=== PATIENT | female | born 1990 | race Caucasian/White ===

== ENCOUNTER 2018-02-28 14:49 | Emergency (ER) | payer BC, OTHER ==
[~2018-02-28] VITALS: Ht 162.6 cm; Wt 75.7 kg
--- NOTE | 2018-02-28 15:30 | ED Headache ---
General Chief Complaint: Head/Cervical Problems Stated Complaint: MIGRAINE Nursing Triage Note: C/O persistant headache with associated left sided neck pain. Pt was treated and released from [facility] on after a apparent seizure and headache. Pt awake,alert, and active. GCS-15. Nursing Sepsis Screen: No Definite Risk Source: patient, family Exam Limitations: no limitations History of Present Illness Date Seen by Provider: Feb 28, 2018 Time Seen by Provider: 15:30 Initial Comments 27 yo female patient presents to the ED with c/o persistent headache since . Patient reports possibly having a seizure last while at work. Patient reports of "not feeling well" all day . When she went to break she felt like she couldn't catch her breath and felt a sharp pain in her chest. Her left arm felt tingly and numb. Patient reports her vision going dark. The next thing she remembers is waking up on the floor with her co- workers around her. States she was trying to get up, but they wouldn't let her. Coworkers told the patient's parents that she was "twitching like she was having a seizure." Denies being incontinent of stool or urine. Patient was seen at [facility] ED. CT head/neck and knee xray were negative. She had a similar episode 2 years ago and reports being told by her PCP that if another episode didn't happen within 6 months, it probably wouldn't happen. She now c/ o worsened headache, neck pain (L>R), right cheek pain, and left rib pain. Patient did bring ED records with her. Timing/Duration: waxing and waning Severity/Quality: throbbing Location: frontal (rt), occipital, parietal (rt) Prior Headaches/Recent Trauma: head trauma > 24 hrs ago (syncopal episode with fall on February.) Modifying Factors: worse with exposure to light (sound and light sensitivities. ), worse with movement (movement of the neck); improves with other (deep breaths increase the rib pain.) Allergies and Home Medications Allergies Coded Allergies: Penicillins (Verified Allergy, Unknown, 02/28/18) latex (Verified Allergy, Unknown, 02/28/18) Home Medications Naproxen 500 Mg Tablet, 500 MG PO BID PRN for PAIN-MILD TO MODERATE Prescribed by: BETTY MONTAÑO on 02/28/181826 Ondansetron 8 Mg Tab.rapdis, 8 MG PO Q6H PRN for NAUSEA/VOMITING-1ST LINE Prescribed by: BETTY MONTAÑO on 02/28/181826 Orphenadrine Citrate 100 Mg Tablet.er, 50-100 MG PO BID PRN for SPASMS Prescribed by: BETTY MONTAÑO on 02/28/181826 Prednisone 20 Mg Tab, 20 MG PO BID Prescribed by: BETTY MONTAÑO on 02/28/181826 Tramadol HCl 50 Mg Tablet, 50 MG PO Q4H PRN for pain Prescribed by: BETTY MONTAÑO on 02/28/181826 Patient Home Medication List Home Medication List Reviewed: Yes Review of Systems Constitutional: No chills, No dizziness, No fever; malaise, other (fatigue) Eyes: Denies Blurred Vision, Denies Drainage, Denies Decreased Acuity; Photophobia; Denies Vision Changes Ears, Nose, Mouth, Throat: see HPI; denies ear pain, denies ear discharge, denies nose pain, denies nose discharge, denies epistaxis, denies mouth pain, denies mouth swelling, denies loose teeth, denies throat pain Respiratory: see HPI; No cough, No dyspnea on exertion, No hemoptysis, No phlegm; short of breath; No stridor, No wheezing; other (left rib pain.) Cardiovascular: No chest pain; palpitations, syncope Gastrointestinal: see HPI; No abdominal pain, No constipation, No diarrhea, No hematemesis; loss of appetite; No melena; nausea, vomiting Genitourinary: no symptoms reported Musculoskeletal: see HPI; No back pain, No joint pain; neck pain Skin: No change in color, No lumps Psychiatric/Neurological: Headache; Denies Numbness, Denies Paresthesia, Denies Seizure, Denies Tingling, Denies Weakness All Other Systems Reviewed Negative Unless Noted: Yes (Negative excepted noted.) Past Vidvcev-Wicgdd-Jnngoe Hx Patient Social History Alcohol Use: Denies Use Recreational Drug Use: No Smoking Status: Current Everyday Smoker Recent Foreign Travel: No Contact w/Someone Who Travel: No Recent Infectious Disease Expo: No Past Medical History Surgeries: Yes Orthopedic Respiratory: No Neurological: No Sexually Transmitted Disease: No Genitourinary: No Gastrointestinal: No Musculoskeletal: No Endocrine: No HEENT: No Cancer: No Psychosocial: No Integumentary: No Blood Disorders: No Family Medical History Reviewed Nursing Family Hx No Pertinent Family Hx (FHX unknown (patient is adopted).) Physical Exam Vital Signs Vital Signs - First Documented 02/28/18 15:15 Temp 97.6 Pulse 90 Resp 16 B/P (MAP) 144/109 (121) Pulse Ox 98 O2 Delivery Room Air Capillary Refill : Less Than 3 Seconds General Appearance: WD/WN, no apparent distress HEENT: PERRL/EOMI, normal ENT inspection, TMs normal, pharynx normal, other ( posterior scalp TTP with swelling. TTP at the base of the skull bilaterally.) Neck: full range of motion, supple, tender lateral (posterolateral muscle spasm with ttp. ), tender midline (mild midline tenderness without deformity or stepoff.) Cardiovascular: normal peripheral pulses, regular rate, rhythm, no edema, no murmur Respiratory: lungs clear, normal breath sounds, no respiratory distress, no accessory muscle use, other (left posterior and lateral ribs TTP without deformity, bruising, or swelling.) Gastrointestinal: normal bowel sounds, non tender, soft, no organomegaly Back: normal inspection, no vertebral tenderness Extremities: normal range of motion, non-tender, normal inspection, no pedal edema, normal capillary refill, pelvis stable Psychiatric: alert, oriented x 3 Crainal Nerves: normal hearing, normal speech, PERRL Coordination/Gait: normal finger to nose, normal gait, negative Romberg's sign Motor/Sensory: no motor deficit, no sensory deficit, no pronator drift Skin: normal color, warm/dry Progress/Results/Core Measures Lab Results Laboratory Tests Test 02/28/18 16:12 02/28/18 18:24 Range/Units White Blood Count 9.4 4.3-11.0 10^3/uL Red Blood Count 4.73 4.35-5.85 10^6/uL Hemoglobin 14.8 11.5-16.0 G/DL Hematocrit 42 35-52 % Mean Corpuscular Volume 89 80-99 FL Mean Corpuscular Hemoglobin 31 25-34 PG Mean Corpuscular Hemoglobin Concent 35 32-36 G/DL Red Cell Distribution Width 12.0 10.0-14.5 % Platelet Count 227 130-400 10^3/uL Mean Platelet Volume 10.4 7.4-10.4 FL Neutrophils (%) (Auto) 55 42-75 % Lymphocytes (%) (Auto) 34 12-44 % Monocytes (%) (Auto) 9 0-12 % Eosinophils (%) (Auto) 1 0-10 % Basophils (%) (Auto) 0 0-10 % Neutrophils # (Auto) 5.2 1.8-7.8 X 10^3 Lymphocytes # (Auto) 3.2 1.0-4.0 X 10^3 Monocytes # (Auto) 0.9 0.0-1.0 X 10^3 Eosinophils # (Auto) 0.1 0.0-0.3 10^3/uL Basophils # (Auto) 0.0 0.0-0.1 10^3/uL Erythrocyte Sedimentation Rate 1 0-20 MM/HR Sodium Level 138 135-145 MMOL/L Potassium Level 4.1 3.6-5.0 MMOL/L Chloride Level 105 98-107 MMOL/L Carbon Dioxide Level 26 21-32 MMOL/L Anion Gap 7 5-14 MMOL/L Blood Urea Nitrogen 13 7-18 MG/DL Creatinine 0.74 0.60-1.30 MG/DL Estimat Glomerular Filtration Rate > 60 BUN/Creatinine Ratio 18 Glucose Level 85 70-105 MG/DL Calcium Level 9.8 8.5-10.1 MG/DL Total Bilirubin 0.5 0.1-1.0 MG/DL Aspartate Amino Transf (AST/SGOT) 22 5-34 U/L Alanine Aminotransferase (ALT/SGPT) 56 H 0-55 U/L Alkaline Phosphatase 70 40-136 U/L C-Reactive Protein High Sensitivity 0.06 0.00-0.50 MG/DL Total Protein 7.3 6.4-8.2 GM/DL Albumin 4.5 3.2-4.5 GM/DL TSH [place] Testing 1.34 0.35-4.94 UIU/ML Serum Test, Qualitative NEGATIVE NEGATIVE Urine Color YELLOW Urine Clarity CLEAR Urine pH 5 5-9 Urine Specific [place] 1.010 L 1.016-1.022 Urine Protein NEGATIVE NEGATIVE Urine Glucose (UA) NEGATIVE NEGATIVE Urine [place] NEGATIVE NEGATIVE Urine Nitrite NEGATIVE NEGATIVE Urine Bilirubin NEGATIVE NEGATIVE Urine Urobilinogen NORMAL NORMAL MG/DL Urine Leukocyte Esterase NEGATIVE NEGATIVE Urine RBC (Auto) NEGATIVE NEGATIVE Urine RBC NONE /HPF Urine WBC NONE /HPF Urine Squamous Epithelial Cells 5-10 /HPF Urine Crystals NONE /LPF Urine Bacteria NEGATIVE /HPF Urine Casts NONE /LPF Urine Mucus NEGATIVE /LPF Urine Culture Indicated NO My Orders Orders - BETTY MONTAÑO Ct Chest W (02/28/18 15:47) Ct Head/Face/Cervical Wo (02/28/18 15:47) Saline Lock/Iv-Start (02/28/18 15:47) Ekg Tracing (02/28/18 15:47) Cbc With Automated Diff (02/28/18 15:47) Comprehensive Metabolic Panel (02/28/18 15:47) Hs C Reactive Protein (02/28/18 15:47) Hcg,Qualitative Serum (02/28/18 15:47) Thyroid Analyzer (02/28/18 15:47) Ua Culture If Indicated (02/28/18 15:47) Erythrocyte Sedimentation Rate (02/28/18 15:47) Ondansetron Injection (Zofran Injectio (02/28/18 16:00) Fentanyl Injection (Sublimaze Injection (02/28/18 15:47) Orphenadrine Injection (Norflex Injectio (02/28/18 15:47) Ns Iv 1000 Ml (Sodium Chloride 0.9%) (02/28/18 15:47) Iohexol Injection (Omnipaque 350 Mg/Ml 1 (02/28/18 16:00) Ns (Ivpb) (Sodium Chloride 0.9% Ivpb Bag (02/28/18 16:00) Ondansetron Injection (Zofran Injectio (02/28/18 17:45) Ketorolac Injection (Toradol Injection) (02/28/18 17:31) Ns Iv 1000 Ml (Sodium Chloride 0.9%) (02/28/18 17:31) Acetaminophen Tablet (Tylenol Tablet) (02/28/18 18:55) Medications Given in ED Current Medications Medications Dose Ordered Sig/Trent Route Start Time Stop Time Status Last Admin Dose Admin Iohexol 75 ml ONCE ONCE IV 02/28/18 16:00 02/28/18 16:03 DC 02/28/18 17:14 75 ML Ondansetron HCl 4 mg ONCE ONCE IVP 02/28/18 16:00 02/28/18 16:01 DC 02/28/18 16:05 4 MG Ondansetron HCl 4 mg ONCE ONCE IVP 02/28/18 17:45 02/28/18 17:46 DC 02/28/18 17:44 4 MG Sodium Chloride 100 ml ONCE ONCE IV 02/28/18 16:00 02/28/18 16:03 DC 02/28/18 17:14 100 ML Sodium Chloride 1,000 ml @ 0 mls/hr Q0M ONCE IV 02/28/18 15:47 02/28/18 15:53 DC 02/28/18 16:06 0 MLS/HR Sodium Chloride 1,000 ml @ 0 mls/hr Q0M ONCE IV 02/28/18 17:31 02/28/18 17:33 DC 02/28/18 17:44 0 MLS/HR Vital Signs/I&O 02/28/18 02/28/18 15:15 19:18 Temp 97.6 97.6 Pulse 90 90 Resp 16 16 B/P (MAP) 144/109 (121) 138/98 (121) Pulse Ox 98 98 O2 Delivery Room Air Blood Pressure Mean: 121 Initial ECG Impression Date: Feb 28, 2018 Initial ECG Impression Time: 16:18 Initial ECG Rate: 65 Initial ECG Rhythm: Normal Sinus Initial ECG Intervals: Normal Initial ECG Impression: Normal Initial ECG Comparisson: No Previous ECG Available Comment ECG reviewed and discussed with Dr. Guajardo. Diagonstic Imaging: CT Plain Films/CT/US/NM/MRI: facial bones, c-spine, head Comments CT HEAD/FACE/CERVICAL WO PROCEDURE: CT head, face, and cervical spine without contrast. TECHNIQUE: Multiple contiguous axial images were obtained through the head, neck, and facial bones without the use of intravenous contrast. Sagittal and coronal reformations through the cervical spine and facial bones were also performed. INDICATION: Head and neck pain. FINDINGS: CT head: The ventricles are normal in size, shape, and position. There are no masses or hemorrhages. There are no extra-axial fluid collections. IMPRESSION: Negative CT head. CT cervical spine: Vertebral body height and alignment appear normal. There is slight reversal of the lordotic curvature that may be due to muscle spasm. Disc spaces are well maintained. There is no fracture or misalignment. IMPRESSION: Slight reversal of the lordotic curvature of the cervical spine, possibly due to muscle spasm. Cervical spine is otherwise unremarkable. CT facial bones: Mandible is intact. Temporomandibular joints appear normal. Zygomatic arches are intact. Nasal bones are intact. Orbital moise and rims are intact. There is a small amount of fluid in the left maxillary sinus. Paranasal sinuses are otherwise clear. Mastoid air cells are clear. IMPRESSION: Negative CT facial bones. Dictated by: Dictated on workstation # [id number] Reviewed: Reviewed by Me (radiology report reviewed by me) Diagonstic Imaging: CT Plain Films/CT/US/NM/MRI: chest Comments CT CHEST W PROCEDURE: CT chest with contrast only. TECHNIQUE: Multiple contiguous axial images were obtained through the chest after administration of intravenous contrast. INDICATION: Chest pain FINDINGS: The lungs are clear. There are no effusions or pneumothoraces. There is no hilar or mediastinal lymphadenopathy. The aorta appears normal. There are no central pulmonary emboli. IMPRESSION: Negative CT chest. Dictated by: Dictated on workstation # [id number] Reviewed: Reviewed by Me (radiology report reviewed by me) Departure Communication (Admissions) Patient seen and evaluated. [facility] ED records reviewed. Patient was given 1 L normal saline, 60 mg of Norflex IV, 50 g of fentanyl IV, and 4 mg of Zofran IV 1 dose. Initial labs obtained as well as a CT head/face/neck and CT chest. All laboratory and diagnostic findings were discussed with the patient. Patient continued to complain of headache and neck pain. Patient was given 15 mg of Toradol IV, 4 mg of Zofran prophylactically, as well as 1 g of Tylenol by mouth. Patient reports improvement in symptoms with medications. We'll plan for discharge to home with follow-up as an outpatient with Dr. Celaya. She will return to the emergency department immediately for worsened symptoms. All return precautions were discussed with the patient as described in the discharge instructions of this report. Patient ambulated from the emergency department without difficulty. Impression Primary Impression: Minor head injury Qualified Codes: S09.90XA - Unspecified injury of head, initial encounter Additional Impressions: Sprain of cervical neck Qualified Codes: S13.9XXA - Sprain of joints and ligaments of unspecified parts of neck, initial encounter Episode of syncope Qualified Codes: R55 - Syncope and collapse Contusion of ribs Qualified Codes: S20.212A - Contusion of left front wall of thorax, initial encounter Disposition: HOME, SELF-CARE Condition: Improved Departure-Patient Inst. Decision time for Depature: 18:30 Referrals: LIV CELAYA MD (PCP/Family) Primary Care Physician Patient Instructions: Cervical Muscle Strain (DC), Migraine Headache (DC), Minor Head Injury (DC), Syncope (Fainting) (DC) Add. Discharge Instructions: All discharge instructions reviewed with patient and/or family. Voiced understanding. Medications as instructed. Tylenol extra strength over-the- counter as directed for pain. Avoid heavy lifting, strenuous activities, or activities which may result and head injury for 7 days after the headache resolves. Use a heating pad or pack as needed for pain and muscle spasm. Follow-up with your family practitioner for recheck as an outpatient. She may order an outpatient MRI to further evaluate the neck and headache if symptoms persist. Return to the emergency department for worsened pain, headache, dizziness, changes in vision, changes in behavior, slurred speech, chest pain, shortness of air, fever, vomiting, or any other concerns. Scripts Ondansetron (Ondansetron Odt) 8 Mg Tab.rapdis 8 MG PO Q6H PRN for NAUSEA/VOMITING-1ST LINE, #10 TAB 0 Refills Prov: BETTY MONTAÑO 02/28/18 Tramadol HCl (Tramadol HCl) 50 Mg Tablet 50 MG PO Q4H PRN for pain, #14 TAB 0 Refills Prov: BETTY MONTAÑO 02/28/18 Naproxen (Naprosyn) 500 Mg Tablet 500 MG PO BID PRN for PAIN-MILD TO MODERATE, #20 TAB 0 Refills Prov: BETTY MONTAÑO 02/28/18 Prednisone (Prednisone) 20 Mg Tab 20 MG PO BID, #10 TAB 0 Refills Prov: BETTY MONTAÑO 02/28/18 Orphenadrine Citrate (Orphenadrine Citrate) 100 Mg Tablet.er 50-100 MG PO BID PRN for SPASMS, #14 TAB 0 Refills Prov: BETTY MONTAÑO 02/28/18 Work/School Note: Work Release Form Date Seen in the Emergency Department: Feb 28, 2018 Return to Work: Mar 04, 2018 Other Restrictions Listed Below: no heavy lifting, strenuous activities or activities that may result in BETTY MONTAÑO Feb 28, 2018 15:30
[2018-02-28] MEDS ORDERED: NS IV 1000 ML 1,000 ML IV ONE ×2 (15:47→17:31)
[2018-02-28] MEDS ORDERED: ORPHENADRINE 60 MG/2 ML (NORFLEX) AMP IV STA (15:47)
[2018-02-28] MEDS ORDERED: fentaNYL INJECTION 100 MCG/2 ML AMP IVP STA (15:47)
[2018-02-28] MEDS ORDERED: IOHEXOL 350 MG/ML 100 ML (OMNIPAQUE 350) VIAL IV ONE (16:00)
[2018-02-28] MEDS ORDERED: ONDANSETRON 4 MG/2 ML (SDV) Z0FRAN IVP ONE ×2 (16:00→17:45)
[2018-02-28] MEDS ORDERED: NS 100 ML (IVPB) BAG IV ONE (16:00)
[2018-02-28 16:22] LABS: BASOPHILS % (AUTO) 0 % (0-10); EOSINOPHILS # (AUTO) 0.1 10^3/uL (0.0-0.3); EOSINOPHILS % (AUTO) 1 % (0-10); HEMATOCRIT 42 % (35-52); HEMOGLOBIN 14.8 G/DL (11.5-16.0); LYMPHOCYTES # (AUTO) 3.2 X 10^3 (1.0-4.0); LYMPHOCYTES % (AUTO) 34 % (12-44); MEAN CORPUSCULAR HEMOGLOBIN 31 PG (25-34); MEAN CORPUSCULAR HGB CONC 35 G/DL (32-36); MEAN CORPUSCULAR VOLUME 89 FL (80-99); MEAN PLATELET VOLUME 10.4 FL (7.4-10.4); MONOCYTES # (AUTO) 0.9 X 10^3 (0.0-1.0); MONOCYTES % (AUTO) 9 % (0-12); NEUTROPHILS # (AUTO) 5.2 X 10^3 (1.8-7.8); NEUTROPHILS % (AUTO) 55 % (42-75); PLATELET COUNT 227 10^3/uL (130-400); RED BLOOD COUNT 4.73 10^6/uL (4.35-5.85); WHITE BLOOD COUNT 9.4 10^3/uL (4.3-11.0)
[2018-02-28 16:41] LABS: ERYTHROCYTE SEDIMENTATION RATE 1 MM/HR (0-20)
[2018-02-28 16:43] LABS: ALANINE AMINOTRANSFERASE 56 U/L (0-55); ALBUMIN 4.5 GM/DL (3.2-4.5); ALKALINE PHOSPHATASE 70 U/L (40-136); BILIRUBIN,TOTAL 0.5 MG/DL (0.1-1.0); BUN/CREATININE RATIO 18; CALCIUM 9.8 MG/DL (8.5-10.1); CARBON DIOXIDE 26 MMOL/L (21-32); CHLORIDE 105 MMOL/L (98-107); CREATININE SERUM 0.74 MG/DL (0.60-1.30); GFR ESTIMATED > 60; GLUCOSE 85 MG/DL (70-105); POTASSIUM 4.1 MMOL/L (3.6-5.0); SODIUM 138 MMOL/L (135-145); TOTAL PROTEIN 7.3 GM/DL (6.4-8.2)
[2018-02-28 17:03] LABS: TSH (THYROID ANALYZER) 1.34 UIU/ML (0.35-4.94)
[2018-02-28] MEDS ORDERED: KETOROLAC 30 MG/ML VIAL IVP STA (17:31)
--- NOTE | 2018-02-28 17:42 | Diagnostic Imaging Report ---
PROCEDURE: CT chest with contrast only. TECHNIQUE: Multiple contiguous axial images were obtained through the chest after administration of intravenous contrast. INDICATION: Chest pain FINDINGS: The lungs are clear. There are no effusions or pneumothoraces. There is no hilar or mediastinal lymphadenopathy. The aorta appears normal. There are no central pulmonary emboli. IMPRESSION: Negative CT chest. Dictated by: Dictated on workstation # [id number]
--- NOTE | 2018-02-28 17:47 | Diagnostic Imaging Report ---
PROCEDURE: CT head, face, and cervical spine without contrast. TECHNIQUE: Multiple contiguous axial images were obtained through the head, neck, and facial bones without the use of intravenous contrast. Sagittal and coronal reformations through the cervical spine and facial bones were also performed. INDICATION: Head and neck pain. FINDINGS: CT head: The ventricles are normal in size, shape, and position. There are no masses or hemorrhages. There are no extra-axial fluid collections. IMPRESSION: Negative CT head. CT cervical spine: Vertebral body height and alignment appear normal. There is slight reversal of the lordotic curvature that may be due to muscle spasm. Disc spaces are well maintained. There is no fracture or misalignment. IMPRESSION: Slight reversal of the lordotic curvature of the cervical spine, possibly due to muscle spasm. Cervical spine is otherwise unremarkable. CT facial bones: Mandible is intact. Temporomandibular joints appear normal. Zygomatic arches are intact. Nasal bones are intact. Orbital moise and rims are intact. There is a small amount of fluid in the left maxillary sinus. Paranasal sinuses are otherwise clear. Mastoid air cells are clear. IMPRESSION: Negative CT facial bones. Dictated by: Dictated on workstation # [id number]
[2018-02-28] MEDS ORDERED: ONDA8TAB13 PO (18:27)
[2018-02-28] MEDS ORDERED: TRAM50TA2 PO (18:27)
[2018-02-28] MEDS ORDERED: PRD20T PO (18:27)
[2018-02-28] MEDS ORDERED: NAPR-1071 PO (18:27)
[2018-02-28] MEDS ORDERED: ORPH100T PO (18:27)
[2018-02-28 18:29] LABS: BILIRUBIN,URINE NEGATIVE (NEGATIVE); CLARITY,URINE CLEAR; COLOR,URINE YELLOW; GLUCOSE, URINE (UA) NEGATIVE (NEGATIVE); KETONES,URINE NEGATIVE (NEGATIVE); LEUKOCYTE ESTERASE ,URINE NEGATIVE (NEGATIVE); NITRITE,URINE NEGATIVE (NEGATIVE); PH,URINE 5 (5-9); PROTEIN,URINE NEGATIVE (NEGATIVE); UROBILINOGEN,URINE NORMAL (NORMAL)
[2018-02-28 18:40] LABS: BACTERIA,URINE NEGATIVE /HPF
[2018-02-28] MEDS ORDERED: ACETAMINOPHEN 500 MG TAB (TYLENOL) PO STA (18:55)
[2018-02-28 19:18] VITALS: BP 138/98
== END 2018-02-28 19:18 | disposition home or self-care (01) ==
LOC: ER 14:54
DX: S09.90XA Unspecified injury of head, initial encounter (principal); S13.9XXA Sprain of joints and ligaments of unspecified parts of neck, initial encounter; R55 Syncope and collapse; F17.200 Nicotine dependence, unspecified, uncomplicated; Z98.890 Other specified postprocedural states; Z88.0 Allergy status to penicillin; Z91.040 Latex allergy status; W18.30XA Fall on same level, unspecified, initial encounter; Y99.0 Civilian activity done for income or pay; Y92.89 Other specified places as the place of occurrence of the external cause
CPT/HCPCS: 36415; 70450; 70486; 71260; 72125; 80053; 81000; 84443; 84703; 85025; 85652; 86141; 93005; 96361; 96374; 96375; 96376

== ENCOUNTER → 2018-03-03 | Outpatient (CLI) | payer BC ==
[~2018-03-03] MED LIST: AMIT25TA9 PO; CYCL5TAB PO; DOXY100T2 PO; MULT-35 PO; NAPR-1071 PO; NAPR-915 PO; ONDA8TAB13 PO; ONDA8TAB9 SL; ORPH100T PO; PRD20T PO; PROM25TA14 PO; TRAM50TA2 PO
[2018-03-03 15:10] LABS: HEMOGLOBIN 14.3 G/DL (11.5-16.0); MEAN PLATELET VOLUME 10.4 FL (7.4-10.4); RED BLOOD COUNT 4.6 10^6/uL (4.35-5.85); RED CELL DISTRIBUTION WIDTH 11.9 % (10.0-14.5); WHITE BLOOD COUNT 10.9 10^3/uL (4.3-11.0)
--- NOTE | 2018-03-03 15:15 | Diagnostic Imaging Report ---
INDICATION: Fall, now with shoulder pain. EXAMINATION: Three views of the left shoulder. FINDINGS: No fracture, dislocation or acute articular incongruity. The alignment is normal. The scapula is intact. The AC joint is unremarkable. The visualized adjacent ribs and pleura are unremarkable. The clavicle is unremarkable. IMPRESSION: Negative. Dictated by: Dictated on workstation # [id number]
[2018-03-03 15:28] LABS: ALANINE AMINOTRANSFERASE 72 U/L (0-55); ALBUMIN 4.5 GM/DL (3.2-4.5); ALKALINE PHOSPHATASE 61 U/L (40-136); BILIRUBIN,TOTAL 0.4 MG/DL (0.1-1.0); BUN/CREATININE RATIO 22; CALCIUM 9.3 MG/DL (8.5-10.1); CARBON DIOXIDE 24 MMOL/L (21-32); CHLORIDE 106 MMOL/L (98-107); CREATININE SERUM 0.78 MG/DL (0.60-1.30); GFR ESTIMATED > 60; GLUCOSE 94 MG/DL (70-105); POTASSIUM 3.9 MMOL/L (3.6-5.0); SODIUM 138 MMOL/L (135-145); TOTAL PROTEIN 7.2 GM/DL (6.4-8.2)
== END ==
LOC: RAD 14:33
PROVIDERS: ATTEND Physician Assistant
DX: M25.512 Pain in left shoulder (principal); R51 Headache
CPT/HCPCS: 36415; 73030; 80053; 85027; 86611; 86666; 86668; 86757

== ENCOUNTER 2018-03-15 15:47 | Observation (INO) | payer BC ==
[~2018-03-15] VITALS: Ht 162.6 cm; Wt 78.9 kg
[~2018-03-15 15:47] MED LIST changes: -AMIT25TA9 PO; -CYCL5TAB PO; -DOXY100T2 PO; -MULT-35 PO; -NAPR-915 PO; -ONDA8TAB9 SL; -PROM25TA14 PO
[2018-03-15] MEDS ORDERED: ORPHENADRINE 60 MG/2 ML (NORFLEX) AMP IV STA (16:06)
[2018-03-15] MEDS ORDERED: KETOROLAC 30 MG/ML VIAL IVP STA (16:06)
[2018-03-15] MEDS ORDERED: ONDANSETRON 4 MG/2 ML (SDV) Z0FRAN IVP ONE ×2 (16:15→20:30)
[2018-03-15 16:27] LABS: BASOPHILS % (AUTO) 0 % (0-10); EOSINOPHILS # (AUTO) 0.1 10^3/uL (0.0-0.3); EOSINOPHILS % (AUTO) 1 % (0-10); HEMATOCRIT 46 % (35-52); HEMOGLOBIN 15.7 G/DL (11.5-16.0); LYMPHOCYTES # (AUTO) 2.6 X 10^3 (1.0-4.0); LYMPHOCYTES % (AUTO) 25 % (12-44); MEAN CORPUSCULAR HEMOGLOBIN 31 PG (25-34); MEAN CORPUSCULAR HGB CONC 35 G/DL (32-36); MEAN CORPUSCULAR VOLUME 89 FL (80-99); MEAN PLATELET VOLUME 10.8 FL (7.4-10.4); MONOCYTES # (AUTO) 0.5 X 10^3 (0.0-1.0); MONOCYTES % (AUTO) 5 % (0-12); NEUTROPHILS # (AUTO) 7.2 X 10^3 (1.8-7.8); NEUTROPHILS % (AUTO) 69 % (42-75); PLATELET COUNT 250 10^3/uL (130-400); RED BLOOD COUNT 5.12 10^6/uL (4.35-5.85); RED CELL DISTRIBUTION WIDTH 11.9 % (10.0-14.5); WHITE BLOOD COUNT 10.5 10^3/uL (4.3-11.0)
[2018-03-15] MEDS: NS IV 1000 ML 1,000 ML IV ONE ×2 (16:36→16:38)
[2018-03-15 16:56] LABS: ALANINE AMINOTRANSFERASE 83 U/L (0-55); ALBUMIN 4.7 GM/DL (3.2-4.5); ALKALINE PHOSPHATASE 76 U/L (40-136); BILIRUBIN,TOTAL 1.2 MG/DL (0.1-1.0); BUN/CREATININE RATIO 14; CALCIUM 10.2 MG/DL (8.5-10.1); CARBON DIOXIDE 23 MMOL/L (21-32); CHLORIDE 106 MMOL/L (98-107); CREATININE SERUM 0.76 MG/DL (0.60-1.30); GFR ESTIMATED > 60; GLUCOSE 89 MG/DL (70-105); POTASSIUM 4.1 MMOL/L (3.6-5.0); SODIUM 140 MMOL/L (135-145); TOTAL PROTEIN 7.7 GM/DL (6.4-8.2)
[2018-03-15 17:01] LABS: ERYTHROCYTE SEDIMENTATION RATE 1 MM/HR (0-20)
[2018-03-15] MEDS ORDERED: HYDROmorphone 2 MG/ML VIAL (DILAUDID) IVP STA ×2 (17:29→19:45)
--- NOTE | 2018-03-15 18:47 | Diagnostic Imaging Report ---
PROCEDURE: MR imaging cervical spine without contrast. TECHNIQUE: Multiplanar, multisequence MR imaging of the cervical spine was performed without contrast. DATE: March 15, 2018. COMPARISON: CT head, maxillofacial area and cervical spine February 28, 2018. INDICATION: 27-year-old female, history of fall a few weeks ago with severe neck and left shoulder pain. FINDINGS: There is reversal of the normal cervical lordosis. There is no evidence of diffuse marrow infiltrating or replacing process. There is no identified concerning focal bone lesion. There is no marrow edema. There is no evidence of acute fracture. There is no prevertebral soft tissue swelling. The visualized portions of the spinal cord are unremarkable in appearance. There are no findings to suggest ligamentous injury. Disc heights are well preserved. C2-C3: There is no disc bulge. The uncovertebral and facet joints are unremarkable. There is no foraminal narrowing. There is no spinal canal stenosis. C3-C4: There is no disc bulge. The uncovertebral and facet joints are unremarkable. There is no foraminal narrowing. There is no spinal canal stenosis. C4-C5: There is a small left paracentral posterior disc osteophyte complex. The uncovertebral and facet joints are unremarkable. There is no foraminal narrowing. There is no spinal canal stenosis. C5-C6: There is a right paracentral posterior disc osteophyte complex. The uncovertebral and facet joints are unremarkable. There is no foraminal narrowing. There is mild spinal canal stenosis. C6-C7: There is no disc bulge. The uncovertebral and facet joints are unremarkable. There is no foraminal narrowing. There is no spinal canal stenosis. C7-T1: There is no disc bulge. The uncovertebral and facet joints are unremarkable. There is no foraminal narrowing. There is no spinal canal stenosis. IMPRESSION: 1. C4-C5 small left paracentral posterior disc osteophyte complex without foraminal or spinal stenosis. 2. C5-C6 right paracentral posterior disc osteophyte complex with mild spinal stenosis. 3. No abnormal cord signal. 4. No acute fracture. 5. No evidence of ligamentous injury. 6. Reversal of normal cervical lordosis. Dictated by: Dictated on workstation # [id number]
--- NOTE | 2018-03-15 19:14 | Diagnostic Imaging Report ---
EXAMINATION: Magnetic resonance imaging of the left shoulder without contrast. DATE: March 15, 2018. COMPARISON: Left shoulder radiographs, March 03, 2018. HISTORY: 27-year-old female, history of recent fall. Persistent left shoulder pain. TECHNIQUE: Magnetic Resonance Imaging sequences were performed of the shoulder without contrast. FINDINGS: ROTATOR CUFF, LIGAMENTS, TENDONS, AND MUSCLES: The supraspinatus, infraspinatus, teres minor, and subscapularis tendons and muscles are intact. There is normal rotator cuff muscle bulk and signal. LONG HEAD OF BICEPS: The biceps labral attachment and long head of the biceps tendon is intact. The long head of the biceps tendon is normally positioned within the bicipital groove. GLENOHUMERAL JOINT: The humeral head is well positioned relative to the glenoid. The labrum is grossly intact. There is no identified paralabral cyst. The articular cartilage is grossly intact. There is no joint effusion. ACROMIOCLAVICULAR JOINT: The acromioclavicular joint is normally aligned. There are no degenerative changes of the acromioclavicular joint. BONE: The bones all have normal configuration. The bone marrow signal is within normal limits. Specifically, negative for fracture, osteomyelitis, osteonecrosis, or marrow replacing process. BURSAE AND SOFT TISSUES: The bursae and soft tissue surrounding the shoulder are unremarkable. IMPRESSION: Unremarkable MRI of the left shoulder without contrast. Dictated by: Dictated on workstation # [id number]
[2018-03-15 19:18] LABS: BILIRUBIN,URINE NEGATIVE (NEGATIVE); CLARITY,URINE CLEAR; COLOR,URINE YELLOW; GLUCOSE, URINE (UA) NEGATIVE (NEGATIVE); KETONES,URINE NEGATIVE (NEGATIVE); LEUKOCYTE ESTERASE ,URINE NEGATIVE (NEGATIVE); NITRITE,URINE NEGATIVE (NEGATIVE); PH,URINE 5 (5-9); PROTEIN,URINE NEGATIVE (NEGATIVE); UROBILINOGEN,URINE NORMAL (NORMAL)
[2018-03-15 19:25] LABS: SQUAMOUS EPITHELIAL CELL,UR 0-2 /HPF
[2018-03-15] MEDS ORDERED: raNItidine 50 MG/2 ML INJ (ZANTAC) IV ONE (22:15)
[2018-03-15] MEDS ORDERED: METOCLOPRAMIDE INJ 10 MG/2 ML (REGLAN) IVP ONE (22:15)
[2018-03-15] MEDS ORDERED: ACETAMINOPHEN 500 MG TAB (TYLENOL) PO PRN (23:15)
[2018-03-15] MEDS ORDERED: IBUPROFEN 800 MG (MOTRIN) TAB PO PRN (23:15)
[2018-03-15] MEDS ORDERED: PROCHLORPERAZINE 10 MG/2ML INJ (COMPAZINE) IV PRN (23:15)
[2018-03-15] MEDS: NS IV 1000 ML 1,000 ML IV SCH (23:52)
[2018-03-16] VITALS: BP 122/73
[2018-03-16] MEDS: ONDANSETRON 4 MG/2 ML (SDV) Z0FRAN IV PRN ×2 (03:24→08:32)
[2018-03-16] MEDS: fentaNYL INJECTION 100 MCG/2 ML AMP IV PRN ×3 (03:25→08:25)
[2018-03-16 03:43] VITALS: BP 113/68
[2018-03-16 05:53] LABS: BASOPHILS % (AUTO) 0 % (0-10); EOSINOPHILS # (AUTO) 0.1 10^3/uL (0.0-0.3); EOSINOPHILS % (AUTO) 1 % (0-10); HEMATOCRIT 38 % (35-52); HEMOGLOBIN 13.1 G/DL (11.5-16.0); LYMPHOCYTES # (AUTO) 2.8 X 10^3 (1.0-4.0); LYMPHOCYTES % (AUTO) 29 % (12-44); MEAN CORPUSCULAR HEMOGLOBIN 31 PG (25-34); MEAN CORPUSCULAR HGB CONC 35 G/DL (32-36); MEAN CORPUSCULAR VOLUME 90 FL (80-99); MEAN PLATELET VOLUME 10.5 FL (7.4-10.4); MONOCYTES # (AUTO) 0.8 X 10^3 (0.0-1.0); MONOCYTES % (AUTO) 9 % (0-12); NEUTROPHILS % (AUTO) 62 % (42-75); PLATELET COUNT 221 10^3/uL (130-400); RED BLOOD COUNT 4.19 10^6/uL (4.35-5.85); RED CELL DISTRIBUTION WIDTH 11.8 % (10.0-14.5); WHITE BLOOD COUNT 9.8 10^3/uL (4.3-11.0)
[2018-03-16 06:47] LABS: ALANINE AMINOTRANSFERASE 63 U/L (0-55); ALBUMIN 3.7 GM/DL (3.2-4.5); ALKALINE PHOSPHATASE 59 U/L (40-136); BILIRUBIN,TOTAL 0.7 MG/DL (0.1-1.0); BUN/CREATININE RATIO 17; CALCIUM 8.7 MG/DL (8.5-10.1); CARBON DIOXIDE 23 MMOL/L (21-32); CHLORIDE 107 MMOL/L (98-107); CREATININE SERUM 0.63 MG/DL (0.60-1.30); GFR ESTIMATED > 60; GLUCOSE 109 MG/DL (70-105); POTASSIUM 3.9 MMOL/L (3.6-5.0); SODIUM 138 MMOL/L (135-145); TOTAL PROTEIN 5.9 GM/DL (6.4-8.2)
[2018-03-16] MEDS: NS IV 1000 ML 1,000 ML IV SCH (06:54)
[2018-03-16] MEDS ORDERED: raNItidine 50 MG/2 ML INJ (ZANTAC) IV SCH (07:17)
[2018-03-16 08:00] VITALS: BP 112/72
[2018-03-16] MEDS: raNItidine 50 MG/NS 100 ML IVP IV SCH ×4 (08:24→13:48)
[2018-03-16] MEDS ORDERED: DOXYCYCLINE INJECTION 100 MG in NS (IVPB) 100 ML IV SCH (09:00)
[2018-03-16] MEDS ORDERED: ORPHENADRINE 60 MG/2 ML (NORFLEX) AMP IV SCH (09:00)
[2018-03-16] MEDS ORDERED: PROM25TA14 PO (09:05)
[2018-03-16] MEDS ORDERED: MULT-35 PO (09:05)
[2018-03-16] MEDS ORDERED: ONDA8TAB9 SL (09:05)
[2018-03-16] MEDS ORDERED: TRAM50TA2 PO (09:05)
[2018-03-16] MEDS ORDERED: NAPR-915 PO (09:05)
[2018-03-16] MEDS ORDERED: ORPH100T PO (09:05)
[2018-03-16] MEDS ORDERED: DOXYCYCLINE INJECTION 100 MG in NS (IVPB) 100 ML IV NR (09:40)
[2018-03-16] MEDS ORDERED: SCOPOLAMINE 1.5 MG (TRANSDERM-SCOP) PATCH TOP SCH (09:45)
[2018-03-16] MEDS ORDERED: AMITRIPTYLINE 25 MG (ELAVIL) TAB PO SCH (09:45)
--- NOTE | 2018-03-16 09:47 | Short Stay Summary-Hospitalist ---
History of Present Illness HPI/Chief Complaint Pt is a 27yoCF who presented to the ER with CC of migraine and neck pain. She states that all of her symptoms started 2 weeks ago when she "passed out" at work and hit her head. She states she has since been had extensive work up with CT head and MRI Brain as an outpatient without any abnormal findings. She states that the pain worsened today and she developed a migraine. She laid in a dark room in the quiet and took her normal pain medicine without any relief. She described the pain "as if my bones are breaking." She also complains of nausea but believes it to be due to the Fentanyl. On presentation to the ER she had a cervical spine and shoulder MRI that again showed not significant abnormalities. She was admitted for observation for migraine. Source: patient Date Seen 03/16/18 Time Seen by Provider: 14:01 Attending Physician Richard Duval MD PCP Carlos Chavarria MD Referring Physician Date of Admission March 15, 2018 at 10:29 pm Home Medications & Allergies Home Medications Reviewed patient Home Medication Reconciliation performed by pharmacy medication reconciliations sewer and drain technician and/or nursing. Patients Allergies have been reviewed. Allergies Allergies Coded Allergies Penicillins (Verified Allergy, Unknown, 02/28/18) latex (Verified Allergy, Unknown, 02/28/18) Past Wetnyfz-Zfvivp-Yxpezz Hx Past Med/Social Hx: Reviewed and Corrections made Patient Social History Alcohol Use: Occasionally Uses Number of Drinks Today: 0 Alcohol Beverage of Choice: Wine Recreational Drug Use: No Smoking Status: Current Someday Smoker Type Used: Cigars Physical Abuse Screen: No Sexual Abuse: No Recent Foreign Travel: No Contact w/other who traveled: No Recent Hopitalizations: No Recent Infectious Disease Expo: No Immunizations Up To Date Pediatric: Yes Seasonal Allergies Seasonal Allergies: Yes Past Medical History Surgeries: Orthopedic Currently Using CPAP: No Currently Using BIPAP: No : No Sexually Transmitted Disease: No HIV/AIDS: No Musculoskeletal: Arthritis Hearing Impairment: Denies History of Blood Disorders: No Family History Reviewed Nursing Family Hx Pt is adopted does not know family history No Pertinent Family Hx Review of Systems Constitutional: No chills, No fever EENTM: No blurred vision, No double vision Cardiovascular: No chest pain, No palpitations Gastrointestinal: No abdominal pain, No constipation, No diarrhea; nausea Genitourinary: No dysuria Musculoskeletal: No back pain; joint pain, muscle cramps, neck pain Psychiatric/Neurological: Headache; Denies Numbness, Denies Paresthesia, Denies Pre-Existing Deficit, Denies Weakness Physical Exam Physical Exam Vital Signs Vital Signs - First Documented 03/15/18 03/15/18 16:20 23:00 Temp 98.1 Pulse 84 Resp 18 B/P (MAP) 142/100 (114) Pulse Ox 98 O2 Delivery Room Air Capillary Refill : Less Than 3 SecondsLess Than 3 Seconds General Appearance: No Apparent Distress, WD/WN Neck: Supple; No Thyromegaly Respiratory: Lungs Clear, No Respiratory Distress Cardiovascular: Regular Rate, Rhythm, No Murmur Extremity: No Calf Tenderness, No Pedal Edema Neurologic/Psychiatric: Alert, Oriented x3, No Motor/Sensory Deficits, track announcer II- XII Norm as Tested Results Results/Procedures Labs Patient resulted labs reviewed. Imaging: Reviewed Imaging Report Short Stay Diagnosis Discharge Diagnosis-Short Stay Admission Diagnosis Headache Final Discharge Diagnosis Postconcussion syndrome Conclusion Plan See problems Diagnosis/Problems Diagnosis/Problems (1) Postconcussion syndrome Status: Acute Assessment & Plan: Symptoms are consistent with a concussion Started on amitriptyline and advised brain rest Discussed with patient and with her PCP Margaret HUNT in regards to symptoms and extensive workup already done No signs of encephalitis, meningitis, or infection Will continue on current meds She is to follow up with Jose Kerr on Wednesday as that was next available per Margaret She will follow up with PT at [facility] as was ordered by Margaret Clinical Quality Measures DVT/VTE Risk/Contraindication: Risk Factor Score Per Nursin RFS Level Per Nursing on Admit: 1=Low/No VTE PPX SERA CARRASQUILLO MD March 16, 2018 09:47
[2018-03-16] MEDS ORDERED: AMIT25TA9 PO (11:31)
[2018-03-16] MEDS ORDERED: DOXY100T2 PO (11:31)
[2018-03-16] MEDS ORDERED: CYCL5TAB PO (11:31)
[2018-03-16 12:00] VITALS: BP 119/74
--- NOTE | 2018-03-16 14:32 | Discharge Inst-Simple/Standard ---
Discharge Inst-Standard Discharge Medications New, Converted or Re-Newed RX: Call to Patients Pharmacy Patient Instructions/Follow Up Plan of Care/Instructions/FU: Please continue to take your medications as written. Please follow up with your PCP's office on wednesday as scheduled. Please continue with brain rest as Margaret has instructed you on. Activity as Tolerated: Yes Discharge Diet: No Restrictions Return to The Hospital For: Worsening pain, fever, numbness or tingling, or if you feel you are getting worse. SERA CARRASQUILLO MD March 16, 2018 2:32 pm
[2018-03-16] MEDS ORDERED: IBUPROFEN 600 MG (MOTRIN) TAB PO SCH (15:15)
[2018-03-16] MEDS ORDERED: IBUPROFEN 800 MG (MOTRIN) TAB PO SCH (15:15)
[2018-03-19] MEDS ORDERED: SCOPOLAMINE PATCH REMOVAL TP SCH (09:44)
--- NOTE | 2018-03-22 15:57 | ED Headache ---
General Chief Complaint: Head/Cervical Problems Stated Complaint: ENCEPHELITIS,INTRACTABLE PAIN/OCAMPO;TICK EXPOSURE;- Nursing Triage Note: COMPLAINS OF JOINTS BEING ON FIRE AND UNBERABLE NECK PAIN. STATES SHE FELL AT WORK SEVERAL WEEKS AGO AND SEEN BETTY AFTER. Nursing Sepsis Screen: No Definite Risk Source: patient, family (parents) Exam Limitations: no limitations History of Present Illness Date Seen by Provider: March 15, 2018 Allergies and Home Medications Allergies Coded Allergies: Penicillins (Verified Allergy, Unknown, 02/28/18) latex (Verified Allergy, Unknown, 02/28/18) Home Medications Amitriptyline HCl 25 Mg Tablet, 25 MG PO HS Prescribed by: SERA CARRASQUILLO on 03/16/18 1131 Cyclobenzaprine HCl 5 Mg Tablet, 5 MG PO TID Prescribed by: SERA CARRASQUILLO on 03/16/18 1131 Doxycycline Hyclate 100 Mg Tablet, 100 MG PO BID Prescribed by: SERA CARRASQUILLO on 03/16/18 1131 Multivitamin 1 Each Tablet, 1 TAB PO DAILY, (Reported) Naproxen 500 Mg Tablet, 500 MG PO BID PRN for PAIN-MILD, (Reported) Ondansetron 8 Mg Tab.rapdis, 8 MG SL Q6H PRN for NAUSEA/VOMITING-1ST LINE, ( Reported) Promethazine HCl 25 Mg Tablet, 25 MG PO TID PRN for NAUSEA/VOMITING-2ND LINE, ( Reported) Tramadol HCl 50 Mg Tablet, 50 MG PO Q4H PRN for PAIN-MODERATE, (Reported) Past Pipjdzl-Cpgtms-Pklxki Hx Past Med/Social Hx: Reviewed and Corrections made Patient Social History Alcohol Use: Occasionally Uses Number of Drinks Today: 0 Alcohol Beverage of Choice: Wine Recreational Drug Use: No Smoking Status: Current Someday Smoker Type Used: Cigars Recent Foreign Travel: No Contact w/Someone Who Travel: No Recent Infectious Disease Expo: No Recent Hopitalizations: No Immunizations Up To Date PED Vaccines UTD: Yes Seasonal Allergies Seasonal Allergies: Yes Past Medical History Surgeries: Yes (right knee acl, 3 reconstructive sx on right elbow) Orthopedic Respiratory: Yes Asthma Currently Using CPAP: No Currently Using BIPAP: No Cardiac: No Neurological: No : No Sexually Transmitted Disease: No HIV/AIDS: No Genitourinary: No Gastrointestinal: No Musculoskeletal: Yes Arthritis Endocrine: No HEENT: No Hearing Impairment: Denies Cancer: No Psychosocial: No Integumentary: No Blood Disorders: No Family Medical History Reviewed Nursing Family Hx Pt is adopted does not know family history No Pertinent Family Hx Physical Exam Vital Signs Vital Signs - First Documented Capillary Refill : Less Than 3 SecondsLess Than 3 Seconds Progress/Results/Core Measures Results/Orders Blood Pressure Mean: 89 Departure Impression Disposition: ADMITTED INPATIENT Condition: Improved Departure-Patient Inst. Referrals: LEANNA LEE MD (PCP) Primary Care Physician Patient Instructions: Concussion, Adult (DC), Nausea and Vomiting, Adult Scripts Doxycycline Hyclate (Doxycycline Hyclate) 100 Mg Tablet 100 MG PO BID, #20 TAB Prov: SERA CARRASQUILLO MD 03/16/18 Amitriptyline HCl (Amitriptyline HCl) 25 Mg Tablet 25 MG PO HS, #30 TAB Prov: SERA CARRASQUILLO MD 03/16/18 Cyclobenzaprine HCl (Cyclobenzaprine HCl) 5 Mg Tablet 5 MG PO TID for Muscle Spasms, #30 TAB Prov: SERA CARRASQUILLO MD 03/16/18 BETTY MONTAÑO March 22, 2018 15:57
== END 2018-03-16 14:32 | disposition home or self-care (01) ==
LOC: EDUNIT# 15:47 → ER 15:49 → UNDOADMOB 22:29 → 4TH 22:29 → UNDODISOB 03-16 15:10
PROVIDERS: ADMIT Internal Medicine; ATTEND Internal Medicine
DX: F07.81 Postconcussional syndrome (principal); G44.309 Post-traumatic headache, unspecified, not intractable; M54.2 Cervicalgia; M25.512 Pain in left shoulder; F17.290 Nicotine dependence, other tobacco product, uncomplicated; W18.00XD Striking against unspecified object with subsequent fall, subsequent encounter
CPT/HCPCS: 36415; 72141; 73218; 80053; 81000; 82550; 83605; 85025; 85652; 86141; 86618; 86666; 86668; 86757; 87040; 87430; 96361; 96374; 96375; 96376; G0378

== ENCOUNTER → 2018-03-24 | Outpatient (CLI) | payer BC ==
[~2018-03-24] VITALS: Ht 162.6 cm; Wt 78.9 kg
[~2018-03-24] MED LIST changes: +AMIT25TA9 PO; +CYCL5TAB PO; +DOXY100T2 PO; +LIDOCAINE PF 1% 5 ML (XYLOCAINE) AMP ONE; +MULT-35 PO; +NAPR-915 PO; +ONDA8TAB9 SL; +PROM25TA14 PO
[2018-03-24 12:18] VITALS: BP 128/71
--- NOTE | 2018-03-24 13:02 | Anesthesia-Procedure Note ---
Procedures/Interventions Procedure Start/Stop/Diagnosis Date of Procedure: March 24, 2018 Start Time: 12:15 Referring Physician: Carlos Chavarria Preprocedural Diagnosis: H/A Brief History Scheduled procedure for H/A Stop Time: 12:50 Lumbar Puncture Discussed Risk,Benefits: Yes Patient Consents: Yes Position: L3-4, Left Sterile Technique: Yes Opening Pressure: 19.5 Fluid Color: clear Spinal Needle Used: Other (22G quinke) Procedure Notes Laternal position under sterile technique for LP. Obtained CSF at L3-4. Opening pressure stopped at 19.5. Dural puncture x2 attempts with first by TIFFANY Caputo without success. No complications noted during procedure, pt tolerated well. BETO CLARK CRNA March 24, 2018 13:02
[2018-03-24 14:21] VITALS: BP 128/71
[2018-03-24 14:26] LABS: CSF GLUCOSE 63 MG/DL (50-80); CSF TOTAL PROTEIN 23 MG/DL (15-40)
[2018-03-24 15:31] LABS: APPEARANCE,CSF CLEAR; COLOR,CSF COLORLESS
[2018-03-24 15:32] LABS: CSF TUBE NUMBER 4
[2018-03-24 15:33] LABS: RED BLOOD CELL,CSF 3 CELLS (0-0); WHITE BLOOD CELL,CSF 1 CELLS (0-5)
== END ==
LOC: SDC 11:33 → EDSTATUS 12:00
PROVIDERS: ATTEND Internal Medicine
DX: A21 Tularemia (principal)
CPT/HCPCS: 36415; 82945; 84157; 86668; 87070; 87205; 87252; 88112; 89051

== ENCOUNTER → 2019-12-11 | Outpatient (CLI) | payer BC, OTHER ==
[~2019-12-11] MED LIST changes: -LIDOCAINE PF 1% 5 ML (XYLOCAINE) AMP ONE; -TRAM50TA2 PO; +TRM50T PO
--- NOTE | 2019-12-11 11:38 | Diagnostic Imaging Report ---
INDICATION: Cough. TIME OF EXAM: 11:03 AM FINDINGS: The heart size is normal. The pulmonary vascularity is unremarkable. The lungs are clear. No infiltrate, effusion or pneumothorax is detected. IMPRESSION: No acute cardiopulmonary process is detected. Dictated by: Dictated on workstation # [id number]
== END ==
LOC: RAD FS 10:59
PROVIDERS: ATTEND Nurse Practitioner Family
DX: R05 Cough (principal); R09.89 Other specified symptoms and signs involving the circulatory and respiratory systems
CPT/HCPCS: 71046

== ENCOUNTER → 2020-05-15 | Outpatient (CLI) | payer OTHER ==
--- NOTE | 2020-05-15 14:59 | Diagnostic Imaging Report ---
INDICATION: Neck pain for a couple of years with no injury. TECHNIQUE: AP, lateral, and odontoid views cervical spine.. CORRELATION STUDY: None. FINDINGS: Mild reversal of the normal cervical lordosis. Alignment is otherwise relatively anatomic. Vertebral body heights are fairly well maintained with the exception of slight loss of height of C5-C6 and minimal anterior wedging at the C7 level. Slight asymmetric disc space narrowing at the C4-C5 and C5-C6 levels. Posterior elements are intact and in normal alignment. Odontoid appears to be intact. The lateral masses of C1 and C2 are aligned. Prevertebral soft tissues are unremarkable. IMPRESSION: Reversal of the normal cervical lordosis which could be owing to splinting and/or spasm. Mild cervical spondylosis is present. Dictated by: Dictated on workstation # [id number]
== END ==
LOC: RAD FS 12:47
PROVIDERS: ATTEND Chiropractor
DX: M47.812 Spondylosis without myelopathy or radiculopathy, cervical region (principal)
CPT/HCPCS: 72040

== ENCOUNTER → 2020-07-01 | Outpatient (CLI) | payer OTHER ==
[2020-07-01 09:02] LABS: WHITE BLOOD COUNT 11.8 10^3/uL (4.3-11.0)
[2020-07-01 09:04] LABS: HEMATOCRIT 43 % (35-52); HEMOGLOBIN 14.6 G/DL (11.5-16.0); MEAN CORPUSCULAR HEMOGLOBIN 33 PG (25-34); MEAN CORPUSCULAR HGB CONC 34 G/DL (32-36); MEAN CORPUSCULAR VOLUME 95 FL (80-99); MEAN PLATELET VOLUME 9.3 FL (7.4-10.4); NEUTROPHILS % (AUTO) 61 % (42-75); PLATELET COUNT 230 10^3/uL (130-400); RED CELL DISTRIBUTION WIDTH 11.6 % (10.0-14.5)
[2020-07-01 09:05] LABS: BASOPHILS # (AUTO) 0.1 10^3/uL (0.0-0.1); BASOPHILS % (AUTO) 1 % (0-10); EOSINOPHILS # (AUTO) 0.5 10^3/uL (0.0-0.3); EOSINOPHILS % (AUTO) 5 % (0-10); LYMPHOCYTES # (AUTO) 2.9 X 10^3 (1.0-4.0); LYMPHOCYTES % (AUTO) 25 % (12-44); MONOCYTES % (AUTO) 9 % (0-12); NEUTROPHILS # (AUTO) 7.3 X 10^3 (1.8-7.8)
[2020-07-01 09:26] LABS: ALANINE AMINOTRANSFERASE 34 U/L (0-55); ALKALINE PHOSPHATASE 70 U/L (40-136); BILIRUBIN,TOTAL 0.6 MG/DL (0.1-1.0); BUN/CREATININE RATIO 17; CALCIUM 8.9 MG/DL (8.5-10.1); CARBON DIOXIDE 25 MMOL/L (21-32); CHLORIDE 102 MMOL/L (98-107); CREATININE SERUM 0.65 MG/DL (0.60-1.30); GFR ESTIMATED > 60; GLUCOSE 97 MG/DL (70-105); POTASSIUM 3.9 MMOL/L (3.6-5.0); SODIUM 138 MMOL/L (135-145); TOTAL PROTEIN 7.2 GM/DL (6.4-8.2)
[2020-07-01 09:27] LABS: ALBUMIN 4.5 GM/DL (3.2-4.5)
== END ==
LOC: LAB FS 08:41
PROVIDERS: ATTEND Nurse Practitioner Family
DX: N30.01 Acute cystitis with hematuria (principal)
CPT/HCPCS: 36415; 80053; 83605; 85025

== ENCOUNTER 2021-12-16 15:38 | Emergency (ER) | payer BC ==
[~2021-12-16] VITALS: Ht 162.6 cm; Wt 68.0 kg
[2021-12-16 16:19] LABS: BASOPHILS % (AUTO) 0 % (0-10); EOSINOPHILS # (AUTO) 0.1 10^3/uL (0.0-0.3); EOSINOPHILS % (AUTO) 1 % (0-10); HEMATOCRIT 42 % (35-52); HEMOGLOBIN 14.8 g/dL (11.5-16.0); LYMPHOCYTES # (AUTO) 0.3 10^3/uL (1.0-4.0); LYMPHOCYTES % (AUTO) 5 % (12-44); MEAN CORPUSCULAR HEMOGLOBIN 33 pg (25-34); MEAN CORPUSCULAR HGB CONC 35 g/dL (32-36); MEAN CORPUSCULAR VOLUME 93 fL (80-99); MEAN PLATELET VOLUME 9.8 fL (9.0-12.2); MONOCYTES # (AUTO) 0.9 10^3/uL (0.0-1.0); MONOCYTES % (AUTO) 12 % (0-12); NEUTROPHILS # (AUTO) 5.9 10^3/uL (1.8-7.8); NEUTROPHILS % (AUTO) 81 % (42-75); PLATELET COUNT 198 10^3/uL (130-400); WHITE BLOOD COUNT 7.2 10^3/uL (4.3-11.0)
--- NOTE | 2021-12-16 16:27 | Diagnostic Imaging Report ---
INDICATION: Shortness of air. TIME OF EXAM: 4:17 PM Comparison is made with prior chest from 12/11/2019. FINDINGS: The heart size is normal. The pulmonary vascularity is unremarkable. The lungs are clear. No infiltrate, effusion or pneumothorax is detected. IMPRESSION: No acute cardiopulmonary process is detected. Dictated by: Dictated on workstation # [id number]
[2021-12-16] MEDS ORDERED: KETOROLAC 30 MG/ML VIAL IVP ONE (16:45)
[2021-12-16 16:50] LABS: BILIRUBIN,URINE NEGATIVE (NEGATIVE); CLARITY,URINE CLOUDY; GLUCOSE, URINE (UA) NEGATIVE (NEGATIVE); KETONES,URINE TRACE (NEGATIVE); LEUKOCYTE ESTERASE ,URINE NEGATIVE (NEGATIVE); NITRITE,URINE NEGATIVE (NEGATIVE); PH,URINE 6.5 (5-9); PROTEIN,URINE TRACE (NEGATIVE)
[2021-12-16 16:54] LABS: CARBON DIOXIDE 26 MMOL/L (21-32); CHLORIDE 98 MMOL/L (98-107); POTASSIUM 3.8 MMOL/L (3.6-5.0); SODIUM 138 MMOL/L (135-145)
[2021-12-16 16:55] LABS: ALANINE AMINOTRANSFERASE 32 U/L (0-55); ALBUMIN 4.9 GM/DL (3.2-4.5); ALKALINE PHOSPHATASE 81 U/L (40-136); BILIRUBIN,TOTAL 0.5 MG/DL (0.1-1.0); BUN/CREATININE RATIO 13; CALCIUM 9.8 MG/DL (8.5-10.1); CREATININE SERUM 0.67 MG/DL (0.60-1.30); GFR ESTIMATED 118; GLUCOSE 121 MG/DL (70-105); TOTAL PROTEIN 7.9 GM/DL (6.4-8.2)
[2021-12-16 16:56] LABS: NEUTROPHILS % (MANUAL) 75 %
[2021-12-16 16:57] LABS: ATYPICAL LYMPHOCYTES 3 %; BAND NEUTROPHILS 6 %; BASOPHILS % (MANUAL) 1 %; EOSINOPHILS % (MANUAL) 2 %; LYMPHOCYTES % (MANUAL) 1 %; MONOCYTES % (MANUAL) 9 %; PLATELET ESTIMATE NORMAL; RBC MORPH NORMAL; REACTIVE LYMPHOCYTES 3 %
[2021-12-16 16:59] LABS: COLOR,URINE AMBER
[2021-12-16 17:08] LABS: BACTERIA,URINE LARGE /HPF; RENAL EPITHELIAL CELLS,URINE RARE /HPF; URINE OTHER MANY CLUE CELLS /HPF
[2021-12-16] MEDS ORDERED: fentaNYL INJ 100 MCG/2 ML AMP IVP ONE (17:45)
[2021-12-16] MEDS ORDERED: ONDANSETRON 4 MG/2 ML (SDV) Z0FRAN IVP ONE (17:45)
--- NOTE | 2021-12-16 17:52 | ED General ---
General Chief Complaint: COVID19 Suspect/Confirmed Stated Complaint: BODY ACHES,FEVER,SOB Nursing Triage Note: PT AMBULATE TO ROOM FS05 WITHOUT DIFFICULTY WITH C/O DIZZYNESS, LIGHTHEADED, NAUSEA, BODY ACHES, AND CHILLS X3 WEEKS. Source of Information: Patient History of Present Illness Date Seen by Provider: Dec 16, 2021 Time Seen by Provider: 15:45 Initial Comments Patient is a 31-year-old female who presents with body aches, dizziness lightheadedness, chest wall pain with intermittent daily fever and chills for the past 3 weeks. Patient has had 3 - test for Covid is completed 2 rounds of steroids. Most recently she has redeveloped urticaria on her face and arms. She reports some itching. She denies airway swelling. She reports diffuse headache, left rib pain but no shortness of breath. She denies nausea and vomiting. No urinary concerns no burning. No other symptoms or complaints Timing/Duration: Other Severity: Moderate Modifying Factors: improves with Other Associated Systoms: Other Allergies and Home Medications Allergies Coded Allergies: Penicillins (Verified Allergy, Unknown, 02/28/18) latex (Verified Allergy, Unknown, 02/28/18) Patient Home Medication List Home Medication List Reviewed: Yes Amitriptyline HCl (Amitriptyline HCl) 25 Mg Tablet, 25 MG PO HS Prescribed by: SERA CARRASQUILLO on 03/16/18 1131 Cyclobenzaprine HCl (Cyclobenzaprine HCl) 5 Mg Tablet, 5 MG PO TID Prescribed by: SERA CARRASQUILLO on 03/16/18 1131 Doxycycline Hyclate (Doxycycline Hyclate) 100 Mg Tablet, 100 MG PO BID Prescribed by: SERA CARRASQUILLO on 03/16/18 1131 Multivitamin (Daily Multiple Vitamin) 1 Each Tablet, 1 TAB PO DAILY, (Reported) Entered as Reported by: KEN LEOS on 03/16/18904 Naproxen (Naproxen) 500 Mg Tablet, 500 MG PO BID PRN for PAIN-MILD, (Reported) Entered as Reported by: KEN LEOS on 03/16/18904 Ondansetron (Zofran Odt) 8 Mg Tab.rapdis, 8 MG SL Q6H PRN for NAUSEA/VOMITING- 1ST LINE, (Reported) Entered as Reported by: KEN LEOS on 03/16/18904 Promethazine HCl (Promethazine Tablet) 25 Mg Tablet, 25 MG PO TID PRN for NAUSEA/VOMITING-2ND LINE, (Reported) Entered as Reported by: KEN LEOS on 03/16/18904 Tramadol HCl (Tramadol HCl) 50 Mg Tablet, 50 MG PO Q4H PRN for PAIN-MODERATE, (Reported) Entered as Reported by: KEN LEOS on 03/16/18904 Review of Systems Review of Systems Constitutional: see HPI EENTM: see HPI Respiratory: see HPI Cardiovascular: see HPI Gastrointestinal: see HPI Genitourinary: see HPI Musculoskeletal: see HPI Skin: see HPI Psychiatric/Neurological: See HPI Hematologic/Lymphatic: See HPI Immunological/Allergic: see HPI All Other Systems Reviewed Negative Unless Noted: Yes Past Jgvrepv-Ubkelr-Ebrais Hx Patient Social History Tobacco Use?: Yes Tobacco type used: Cigarettes Smoking Status: Former Smoker Smokeless Tobacco Frequency: Never a User Use of E-Cig and/or Vaping dev: No Use of E-Cig and/or Vaping Daniel: Never a User Substance use?: No Alcohol Use?: Yes Alcohol Frequency: Couple times a week Pt feels they are or have been: No Immunizations Up To Date PED Vaccines UTD: Yes Seasonal Allergies Seasonal Allergies: Yes Past Medical History Surgeries: Yes (right knee acl, 3 reconstructive sx on right elbow) Orthopedic Respiratory: Yes Asthma Currently Using CPAP: No Currently Using BIPAP: No Cardiac: No Neurological: No Sexually Transmitted Disease: No HIV/AIDS: No Genitourinary: No Gastrointestinal: No Musculoskeletal: Yes Arthritis Endocrine: No HEENT: No Hearing Impairment: Denies Cancer: No Psychosocial: No Integumentary: No Blood Disorders: No Family Medical History Pt is adopted does not know family history No Pertinent Family Hx Physical Exam Vital Signs Vital Signs - First Documented Capillary Refill : Less Than 3 Seconds Height, Weight, BMI Height: 5'4.00" Weight: 174lbs. 0.0oz. 78.432294vm; 25.00 BMI Method:Estimated General Appearance: No Apparent Distress, WD/WN Eyes: Bilateral Eye EOMI HEENT: PERRL/EOMI, Other (Conjunctiva injected) Neck: Full Range of Motion, Non Tender, Supple Respiratory: Chest Non Tender Cardiovascular: Regular Rate, Rhythm, No Edema Gastrointestinal: Non Tender, Soft Back: Normal Inspection, No CVA Tenderness Neurologic/Psychiatric: Alert, Oriented x3 Skin: Normal Color, Other (Splotchy urticaria on forearms and flushing of face. No target lesions.) Focused Exam Sepsis Stage: Ruled Out Progress/Results/Core Measures Suspected Sepsis SIRS Temperature: Pulse: 105 Respiratory Rate: 17 Laboratory Tests 12/16/21 15:47: White Blood Count 7.2 Blood Pressure 139 /98 Mean: 112 Laboratory Tests 12/16/21 15:47: Creatinine 0.67, Platelet Count 198, Total Bilirubin 0.5 Results/Orders Lab Results Laboratory Tests Test 12/16/21 15:47 12/16/21 16:12 12/16/21 16:27 Range/Units White Blood Count 7.2 4.3-11.0 10^3/uL Red Blood Count 4.54 3.80-5.11 10^6/uL Hemoglobin 14.8 11.5-16.0 g/dL Hematocrit 42 35-52 % Mean Corpuscular Volume 93 80-99 fL Mean Corpuscular Hemoglobin 33 25-34 pg Mean Corpuscular Hemoglobin Concent 35 32-36 g/dL Red Cell Distribution Width 11.6 10.0-14.5 % Platelet Count 198 130-400 10^3/uL Mean Platelet Volume 9.8 9.0-12.2 fL Immature Granulocyte % (Auto) 1 % Neutrophils (%) (Auto) 81 H 42-75 % Lymphocytes (%) (Auto) 5 L 12-44 % Monocytes (%) (Auto) 12 0-12 % Eosinophils (%) (Auto) 1 0-10 % Basophils (%) (Auto) 0 0-10 % Neutrophils # (Auto) 5.9 1.8-7.8 10^3/uL Lymphocytes # (Auto) 0.3 L 1.0-4.0 10^3/uL Monocytes # (Auto) 0.9 0.0-1.0 10^3/uL Eosinophils # (Auto) 0.1 0.0-0.3 10^3/uL Basophils # (Auto) 0.0 0.0-0.1 10^3/uL Immature Granulocyte # (Auto) 0.0 0.0-0.1 10^3/uL Neutrophils % (Manual) 75 % Lymphocytes % (Manual) 1 % Monocytes % (Manual) 9 % Eosinophils % (Manual) 2 % Basophils % (Manual) 1 % Band Neutrophils 6 % Atypical Lymphocytes 3 % Reactive Lymphocytes 3 % Platelet Estimate NORMAL Blood Morphology Comment NORMAL D-Dimer 0.22 0.00-0.49 UG/ML Sodium Level 138 135-145 MMOL/L Potassium Level 3.8 3.6-5.0 MMOL/L Chloride Level 98 98-107 MMOL/L Carbon Dioxide Level 26 21-32 MMOL/L Anion Gap 14 5-14 MMOL/L Blood Urea Nitrogen 9 7-18 MG/DL Creatinine 0.67 0.60-1.30 MG/DL Estimat Glomerular Filtration Rate 118 BUN/Creatinine Ratio 13 Glucose Level 121 H 70-105 MG/DL Calcium Level 9.8 8.5-10.1 MG/DL Corrected Calcium 8.5-10.1 MG/DL Total Bilirubin 0.5 0.1-1.0 MG/DL Aspartate Amino Transf (AST/SGOT) 20 5-34 U/L Alanine Aminotransferase (ALT/SGPT) 32 0-55 U/L Alkaline Phosphatase 81 40-136 U/L C-Reactive Protein 0.41 <0.50 MG/DL Total Protein 7.9 6.4-8.2 GM/DL Albumin 4.9 H 3.2-4.5 GM/DL Monoscreen NEGATIVE NEGATIVE Influenza Type A Antigen NEGATIVE NEGATIVE Influenza Type B Antigen NEGATIVE NEGATIVE Urine Color BRIAN H Urine Clarity CLOUDY Urine pH 6.5 5-9 Urine Specific [place] 1.020 1.016-1.022 Urine Protein TRACE H NEGATIVE Urine Glucose (UA) NEGATIVE NEGATIVE Urine Ketones TRACE H NEGATIVE Urine Nitrite NEGATIVE NEGATIVE Urine Bilirubin NEGATIVE NEGATIVE Urine Urobilinogen 0.2 < = 1.0 MG/DL Urine Leukocyte Esterase NEGATIVE NEGATIVE Urine RBC (Auto) 3+ H NEGATIVE Urine RBC 2-5 H /HPF Urine WBC 2-5 /HPF Urine Squamous Epithelial Cells 10-25 H /HPF Urine Renal Epithelial Cells RARE /HPF Urine Crystals NONE /LPF Urine Bacteria LARGE H /HPF Urine Casts NONE /LPF Urine Mucus LARGE H /LPF Urine Other MANY CLUE CELLS /HPF Urine Culture Indicated NO My Orders Orders - LUCIANO HERNANDEZ DO Cbc With Automated Diff (12/16/21 16:07) Comprehensive Metabolic Panel (12/16/21 16:07) Influenza A & B Antigens (12/16/21 16:07) Monotest (12/16/21 16:07) Fibrin Degradation Products (12/16/21 16:07) Urine Bedside (12/16/21 16:07) Urinalysis (12/16/21 16:07) Chest 1 View Ap/Pa Only (12/16/21 16:09) Manual Differential (12/16/21 15:47) Ketorolac Injection (Toradol Injection) (12/16/21 16:45) Fentanyl Inj (Sublimaze Injection) (12/16/21 17:45) Ondansetron Injection (Zofran Injectio (12/16/21 17:45) Medications Given in ED Current Medications Medications Dose Ordered Sig/Trent Route Start Time Stop Time Status Last Admin Dose Admin Ketorolac Tromethamine 30 mg ONCE ONCE IVP 12/16/21 16:45 12/16/21 16:46 DC 12/16/21 16:46 30 MG Vital Signs/I&O 12/16/21 12/16/21 15:41 15:41 Temp 36.8 Pulse 105 Resp 17 B/P (MAP) 139/98 (112) O2 Delivery Room Air Room Air Capillary Refill : Less Than 3 Seconds Blood Pressure Mean: 112 Departure Communication (Admissions) Chest x-ray: No acute cardiopulmonary disease. Patient's exam consistent with post infectious meeting/inflammatory reaction. IV Toradol and fentanyl given with significant relief. Labs otherwise reassuring. We will continue supportive care watchful waiting with PCP follow- up. Return precautions reviewed. Patient verbalizes understanding and agreement with discharge instructions prior to departure. Impression Primary Impression: Myalgia Additional Impressions: Urticaria Headache Disposition: HOME, SELF-CARE Condition: Stable Departure-Patient Inst. Decision time for Depature: 17:53 Referrals: ELIZABETH PETE APRN (PCP) Primary Care Physician [facility] (Family) Primary Care Physician Patient Instructions: Hives (DC), Headache, Adult (DC) Add. Discharge Instructions: Please go home and rest, increase IV fluids and take Toradol as directed. Follow-up with your PCP in 3 to 5 days for reevaluation. Return to the ED if new or worsening symptoms. All discharge instructions reviewed with patient and/or family. Voiced understanding. Scripts Ketorolac Tromethamine (Ketorolac Tromethamine) 10 Mg Tablet 10 MG PO QID, #30 TAB Prov: LUCIANO HERNANDEZ DO 12/16/21 LUCIANO HERNANDEZ DO Dec 16, 2021 17:52
[2021-12-16] MEDS ORDERED: KETO10TA PO ×2 (17:57→18:15)
[2021-12-16 18:01] VITALS: BP 126/84
== END 2021-12-16 18:01 | disposition home or self-care (01) ==
LOC: EDUNIT# 15:38 → ER FS 15:40
DX: M79.10 Myalgia, unspecified site (principal); L50.9 Urticaria, unspecified; R51.9 Headache, unspecified; J45.909 Unspecified asthma, uncomplicated; Z87.891 Personal history of nicotine dependence; Z91.040 Latex allergy status
CPT/HCPCS: 36415; 71045; 80053; 81000; 84703; 85007; 85027; 85379; 86141; 86308; 87804